=== PATIENT | male | born 1960 | race Caucasian/White ===

== ENCOUNTER 2016-10-05 08:13 | Inpatient (IN) | payer OTHER ==
[2016-09-28 10:56] VITALS: BP 124/94
[~2016-10-05] VITALS: Ht 177.8 cm; Wt 97.5 kg
[~2016-10-05 08:13] MED LIST: ATIV0.5T; EFFE75CA75 PO; KLON1TAB PO; LUNE2TAB; LUNE3TAB48 PO; PROZ40CA; [UNRECOGNIZED DRUG - OTHER] PO; vitamin d PO
[2016-10-07] MEDS ORDERED: NORCO, ANEXSIA 5/325MG TABLET (HYDROcodone/ACETAMINOPHEN) As Ordered ONE (13:37)
[2016-11-23] MEDS ORDERED: CONC36TA4 PO (11:08)
[2016-11-23] MEDS ORDERED: VITA100066 PO (11:08)
--- NOTE | 2016-11-26 17:08 | HPE ---
DATE OF ADMISSION: 12/03/2016 ATTENDING PHYSICIAN: Dr. Hamm CHIEF COMPLAINT: Left hip pain and stiffness. Júnior is a 56-year-old male with progressively worsening left hip pain and stiffness. He has failed to improve with conservative management. He has elected for surgery for his continued symptoms with weightbearing activities and activities of daily living. He has consented for a left total hip arthroplasty by Dr. Hamm. Medical optimization from Dr. Goss, Dr. Maldonado and Dr. Herrera received and reviewed today. CURRENT MEDICATIONS: - Cialis 2.5 mg - Effexor extended release 75 mg twice daily - Klonopin 1 mg up to three times daily as needed ALLERGIES: No known drug allergies. Questionable Tylenol Allergy per patient? PAST MEDICAL HISTORY: Generalized anxiety disorder. PAST SURGICAL HISTORY: Umbilical hernia repair, colonoscopy. SOCIAL HISTORY: Patient is . Never smoked. Denies alcohol use. REVIEW OF SYSTEMS: Patient denies fevers, chills, nausea, vomiting, or diarrhea. He denies chest pain, shortness of breath. He denies any recent upper respiratory or urinary tract infection symptoms. He does have persistent pain in his left hip with weightbearing activities. PHYSICAL EXAMINATION: Well-nourished, well-developed male in no apparent distress. He does walk with a limping gait favoring his left side. Skin over his left hip was intact. There is irritability at the hip elicited with range of motion. His calf is soft, nontender to palpation. Distally, he is neurovascularly intact. NECK: Supple without lymphadenopathy, jugular venous distention (JVD). HEART: Regular rate and rhythm. LUNGS: Clear to auscultation bilaterally without rales or wheezes. ABDOMEN: Bowel sounds are present. VITAL SIGNS: 5 feet 9 inches, weight 225 pounds. Temperature 99.6, blood pressure 132/74, heart rate 80, respirations 16. LABORATORY DATA: Chest x-ray shows no acute cardiopulmonary process. EKG shows normal sinus rhythm with LAD. The patient was cleared by cardiology status post normal stress test and echocardiogram. Comprehensive metabolic profile: Fasting glucose 103, BUN 11, creatinine for GFR 1.07, GFR greater than 60, sodium 138, potassium 4.0, chloride 100, carbon dioxide 32, anion gap slightly decreased at 6, calcium 9.3. AST elevated at 58, ALT 70, alkaline phosphatase 68, total bilirubin 0.6, total protein 8.1, albumin 4.0, albumin/globulin ratio slightly decreased at 0.98. Urinalysis was positive for only 1+ protein, trace ketones, and 2.0 urobilinogen and a moderate amount of mucus. Urine culture showed no growth. Complete blood count: WBC 4.8, RBC 4.92, hemoglobin 15.7, hematocrit 43.9, platelets 220. Sedimentation rate 20, prothrombin time 12.4, INR 0.91. Nasal and sinus culture with normal frances present. DIAGNOSIS: Symptomatic osteoarthritis of the left hip with x-rays notable for end stage degenerative changes. PLAN: Patient has consented for a left total knee arthroplasty by Dr. Hamm. CHAZ
[2016-12-03] VITALS (7 sets, daily range): BP systolic 124–137; BP diastolic 73–92; O2SAT 97
[2016-12-03] MEDS ORDERED: **UNRESOLVED NON-FORMULARY MED ORDER XX SCH (00:01)
[2016-12-03] MEDS ORDERED: LR 1,000 ML IV SCH ×3 (06:00→10:30)
[2016-12-03] MEDS ORDERED: ceFAZolin 1GM INJ (J0690) As Ordered ONE (07:15)
[2016-12-03] MEDS ORDERED: ACETAMINOPHEN 500 MG TAB As Ordered ONE (07:24)
[2016-12-03] MEDS ORDERED: ACETAMINOPHEN 500 MG TAB PO ONE (07:30)
[2016-12-03] MEDS ORDERED: MIDAZOLAM INJ 2 MG/2 ML VIAL (J2250) As Ordered ONE ×2 (08:06→09:09)
[2016-12-03] MEDS ORDERED: fentaNYL 100 MCG/2 ML INJECTION (J3010) As Ordered ONE (08:06)
[2016-12-03] MEDS ORDERED: PROPOFOL 500 MG/50 ML VIAL As Ordered ONE (08:06)
[2016-12-03] MEDS ORDERED: PHENYLephrine HCL 500 MCG/5 ML (100MCG/ML) SYRINGE (J2370) As Ordered ONE ×2 (08:11→08:40)
[2016-12-03] MEDS ORDERED: ceFAZolin 1GM INJ (J0690) IR ONE (08:21)
[2016-12-03] MEDS ORDERED: PROPOFOL 200 MG/20 ML VIAL As Ordered ONE ×2 (08:59→09:27)
[2016-12-03] MEDS ORDERED: MORPHINE PCA 1MG/ML 100ML CADD As Ordered ONE (10:10)
[2016-12-03] MEDS ORDERED: MORPHINE PCA 1MG/ML 100ML CADD IV PRN (10:30)
[2016-12-03] MEDS ORDERED: ONDANSETRON 4MG/2ML VIAL (J2405) IV PRN ×2 (10:30)
[2016-12-03] MEDS ORDERED: NALBUPHINE HCL 10 MG/ML AMP (J2300) IV PRN (10:30)
[2016-12-03] MEDS ORDERED: NALOXONE INJ 0.4 MG/1 ML VIAL (J2310) IV PRN (10:30)
[2016-12-03] MEDS ORDERED: EPIDURAL/PCA KEYS XX PRN (10:30)
[2016-12-03] MEDS ORDERED: FLEET ENEMA PR PRN (10:30)
[2016-12-03] MEDS ORDERED: fentaNYL 100 MCG/2 ML INJECTION (J3010) IV PRN (10:30)
[2016-12-03] MEDS ORDERED: diphenhydrAMINE INJ 50MG/ML VIAL (J1200) IV PRN (10:30)
--- NOTE | 2016-12-03 11:42 | RO ---
DATE OF PROCEDURE: 12/03/2016 PREOPERATIVE DIAGNOSIS: Left hip degenerative arthritis. POSTOPERATIVE DIAGNOSIS: Left hip degenerative arthritis. PROCEDURE: Left total hip arthroplasty using a size 6 [place] standard offset stem with a +5 neck, 36 mm ceramic head, and a 58 mm cup with a 36 mm neutral polyethylene liner. Prosthesis made by [employer]. SURGEON: Toma Hamm MD [employer]: Devan Miramontes PA-C ANESTHESIA: Spinal. ESTIMATED BLOOD LOSS: 150 mL. COMPLICATIONS: None. URINE OUTPUT: 450 mL. DESCRIPTION OF PROCEDURE: Antibiotics were given intravenously preoperatively. Successful spinal anesthetic was induced. A Briscoe catheter was placed. He was placed in a lateral decubitus position with [place] hip positioner, down leg well padded, especially the peroneal nerve. Axillary roll was utilized. The left hip area was prepped and draped in the usual sterile fashion. After appropriate time out, a longitudinal incision was then made for a direct lateral approach to the hip. Bovie cautery was used to coagulate crossing vessels down to the tensor fascia, which was divided in line with the skin incision and we split the gluteus medius, anterior one third and posterior two third junction. We then divided through the gluteus minimus and anterior hip capsule and carefully dissected the tissues anteriorly off the trochanter as we externally rotated the hip and dislocated anteriorly. The starter reamer was placed in the piriformis fossa followed by the canal finding reamer, then the lateralizing reamer and then we reamed up to a size 6 reamer. Femoral neck osteotomy performed using the guide. We then used the box osteotome to set the version, matching his normal version, and then began broaching up to a size 6 broach, which fit very nicely. We did not have to do a calcar plane or revise the cut. We then exposed the acetabulum. He had very large osteophytes, especially superiorly and anteriorly, but eventually we were able to expose the acetabulum adequately such that we could do a good labral excision and inferior capsular release to provide exposure to the acetabulum. We then began reaming, began with a 50 mm reamer, down to just about the floor of the acetabulum, and then we sequentially increased the reamer size in 1 mm increments from 53 up to 57. The trial of 58 cup fit very nicely. Extramedullary alignment guide was used to help make sure we had appropriate version and abduction. We did excise a very large superior osteophyte as well as excised with an osteotome a large anterior osteophyte. We then copiously irrigated out the acetabulum. There were some cysts in the acetabulum, which I curetted and the placed the real 58 mm cup and used the guide again to be sure we were set at the appropriate abduction and version. The central hole eliminator was placed. The real polyethylene was placed and it seated nicely, and then we exposed the proximal femur and placed the number 6 broach, and trialed with a +5 neck length and it actually fit very nicely and there was good stability to flexion, internal rotation, and extension and external rotation, but there was minimal shuck. He was a little bit short preoperatively and thus I did trial the 8.5 neck, but in my estimation it was bit to tight. His left knee would not quite touch the bed because the abductors were to tight with a +8.5. I did not want to over tighten, so I settled on the +5 neck length. Thus, i removed the broach, placed the real number 6 stem after copiously irrigating out the femoral canal and placed the 35 mm x +5 neck length ceramic head and then reduced the hip. We copiously irrigated the wounds as we did several times throughout the operation then closed the gluteus minimus and anterior capsule back anatomically and then the gluteus medius back anatomically to the trochanter and with a series of interrupted #1 PDS sutures. Irrigated between layers, closed the tensor fascia with a running STRATAFIX, irrigated between layers and closed the deep subdermal tissues with interrupted #2-0 PDS sutures. The skin was closed with latisha, covered by Adaptic dry sterile bulky dressing. He was then placed in his abduction pillow brace after turning him supine and then transferred to the recovery room in stable condition. There were no intraoperative complications. Mr. Devan Miramontes was critical to the success of this difficult operation by helping to manipulate the hip, helping with appropriate soft tissue retraction, helping to expose the acetabulum, such that I could perform the operation smoothly and efficiently, helped to close the wound, amongst many other tasks.
[2016-12-03] MEDS: SENOKOT S TAB PO SCH ×2 (12:25→20:06)
[2016-12-03] MEDS: LR 1,000 ML IV SCH ×2 (12:25→23:00)
[2016-12-03] MEDS: MIRALAX *UNIT DOSE* 17GM PACKET PO SCH (12:25)
[2016-12-03] MEDS ORDERED: clonazePAM 1 MG TAB PO PRN (14:45)
--- NOTE | 2016-12-03 16:45 | CR ---
DATE OF CONSULTATION: 12/03/2016 CONSULTATION REPORT FOR: Dr. Juan Diego Hamm REASON FOR CONSULTATION: Medical management. [facility] C[facility] COMMISSIONER: Dr. Quintin Maldonado HISTORY OF PRESENT ILLNESS: This is a 56-year-old male patient with underlying medical history of generalized anxiety disorder, depression, osteoarthritis, initially presented to orthopedics with progressively worsening left hip pain and stiffness, failed to improve on conservative management and patient has presented for elective surgery for left total hip arthroplasty by Dr. Juan Diego Hamm. Medical optimization done by Dr. Benjamin, Dr. Maldonado, and Dr. Hererra. Status post surgery medicine consulted for medical management. Patient currently reporting minimal pain. Examined in the postanesthesia care unit (PACU). Denies any chest pain, pressure, or discomfort. Denies any fevers or chills. Denies history of obstructive sleep apnea. ALLERGIES: Questionable allergy to ACETAMINOPHEN. PAST MEDICAL HISTORY: Anxiety and depression. PAST SURGICAL HISTORY: Umbilical hernia repair, colonoscopy. SOCIAL HISTORY: Patient is . Never smoked. Occasional alcohol use once or twice a week, 1-2 beers. FAMILY HISTORY: Noncontributory. HOME MEDICATIONS: - Cialis 2.5 mg - Concerta 40 mg by mouth daily - Lunesta 3 mg by mouth as needed - Klonopin 1 mg by mouth three times a day as needed REVIEW OF SYSTEMS: 11-point review of systems was negative except those mentioned in history of present illness (HPI). PHYSICAL EXAMINATION: VITAL SIGNS: Temperature 97, pulse 72, respirations 18, blood pressure 123/75, pulse oximetry 99% on 2 liters nasal cannula. GENERAL: Patient alert and oriented times three, in no acute distress. HEENT: Normocephalic, atraumatic. PULMONARY: Bilateral clear to auscultation. CARDIAC: Regular rate and rhythm, normal S1, S2. ABDOMEN: Soft, nontender, nondistended. Hypoactive bowel sounds. EXTREMITIES: Dressing clean, dry, and intact. Able to move bilateral toes. Dorsalis pedis (DP) and posterior tibialis (PT) pulses 2+ bilateral. ASSESSMENT AND PLAN: This is a 56-year-old male patient with underlying medical history of anxiety and depression, osteoarthritis of the left hip, admitted onto orthopedic service for left total hip replacement. 1. Osteoarthritis status post left total hip replacement by Dr. Juan Diego Hamm. Pain regimen, perioperative management, physical therapy, deep venous thrombosis (DVT) prophylaxis as per orthopedic team. Patient on Coumadin for anticoagulation. Followup INR. Bowel regimen ordered. 2. Anxiety and depression. Continue home medications. 3. Deep venous thrombosis (DVT) prophylaxis. Patient on Coumadin as per orthopedics. DISPOSITION: Managed as per orthopedics team.
[2016-12-03] MEDS ORDERED: WARFARIN SOD 5 MG TAB PO SCH (17:00)
[2016-12-03] MEDS ORDERED: clonazePAM 1 MG TAB PO SCH (21:00)
[2016-12-03] MEDS ORDERED: PRAZOSIN 1 MG CAP PO SCH (21:00)
[2016-12-04 06:00] VITALS: BP 123/70
[2016-12-04] MEDS ORDERED: ONDANSETRON 4 MG TAB (S0181) PO PRN (06:30)
[2016-12-04] MEDS ORDERED: traMADol 50 MG TAB PO PRN (06:30)
[2016-12-04 06:43] LABS: MEAN CORPUSCULAR HEMOGLOBIN 31.4 pg (27.0-33.0); MEAN CORPUSCULAR HGB CONC 34.7 g/dl (32.0-36.5); MEAN CORPUSCULAR VOLUME 90.6 fl (80.0-96.0)
[2016-12-04 06:45] LABS: INR 1.08
[2016-12-04 06:58] LABS: ANION GAP 7 MEQ/L (8-16); BLOOD UREA NITROGEN 10 MG/DL (7-18); CALCIUM LEVEL 8.2 MG/DL (8.5-10.1); CARBON DIOXIDE LEVEL 31 MEQ/L (21-32); CHLORIDE LEVEL 98 MEQ/L (98-107); GLOMERULAR FILTRATION RATE > 60.0 (>56); GLUCOSE, FASTING 120 MG/DL (70-105); POTASSIUM SERUM 3.7 MEQ/L (3.5-5.1); SODIUM LEVEL 136 MEQ/L (136-145)
--- NOTE | 2016-12-04 08:01 | IPNPDOC ---
Assessment/Plan Date Seen The patient was seen on 12/04/16. Problems Problems: (1) Status post total hip replacement, left Status: Acute Problem Text: elective total hip arthroplasty of the left for advanced osteoarthritis, pain control and dvt prophylaxis as per ortho protocol. (2) SEAN (generalized anxiety disorder) Status: Chronic Problem Text: continue home meds. (3) Depression Status: Chronic Problem Text: continue home meds. Plan / VTE VTE Prophylaxis Ordered?: Yes Subjective Review of Systems CC/HPI The patient is a 56-year-old male admitted with a reason for visit of Arthritis Left Hip. Events since last encounter complains of some cramps in the abdomen after breakfast, no nausea or vomiting , no chest pain or shortness of breath. Objective Physical Examination Eye Exam: Positive: Conjunctiva & lids normal, EOMI, PERRLA, Negative: Sclera icteric ENT Exam: Positive: Atraumatic, Mucous membr. moist/pink, Pharynx Normal Neck Exam: Positive: Supple, Negative: JVD, thyromegaly Chest Exam: Positive: Clear to auscultation, Normal air movement Heart Exam: Negative: Bradycardic, Gallops, Irregular Rhythm, Murmurs, Normal S1, Normal S2, Other, Rate Normal, Regular Rhythm, Rubs, Tachycardic Abdomen Exam: Positive: Normal bowel sounds, Soft, Negative: Hepatospenomegaly, Tenderness Extremity Exam: Positive: Normal pulses, Negative: Clubbing, Cyanosis, Edema Vital Signs/I&O Vital Signs Date Time Temp Pulse Resp B/P Pulse Ox O2 Delivery O2 Flow Rate FiO2 12/04/16 06:00 98.4 103 16 123/70 96 Nasal Cannula 2.0 I&O- Last 24 Hours up to 6 AM 12/04/16 06:00 Intake Total 3780 ml Output Total 1900 ml Balance 1880 ml Laboratory Data Labs 24H Laboratory Tests 2 12/04/16 06:23: Anion Gap 7L, Blood Urea Nitrogen 10, Creatinine 1.00, Sodium Level 136, Potassium Level 3.7, Chloride Level 98, Carbon Dioxide Level 31, Calcium Level 8.2L, Glomerular Filtration Rate > 60.0, Magnesium Level 2.0, Prothromb Time International Ratio 1.08, Prothrombin Time 14.1 CBC/BMP Laboratory Tests 12/04/16 06:23 Calcium Level 8.2 L, Red Blood Count 4.13 L, Mean Corpuscular Volume 90.6, Mean Corpuscular Hemoglobin 31.4, Mean Corpuscular Hemoglobin Concent 34.7, Red Cell Distribution Width 14.0 VICKIE WHITE MD Dec 04, 2016 08:01
[2016-12-04] MEDS: MIRALAX *UNIT DOSE* 17GM PACKET PO SCH (08:20)
[2016-12-04] MEDS: MOM 30ML SUSPENSION UDC PO SCH (08:20)
[2016-12-04] MEDS: SENOKOT S TAB PO SCH ×2 (08:21→19:34)
[2016-12-04] MEDS: traMADol 50 MG TAB PO PRN ×2 (08:21→15:12)
[2016-12-04 10:04] VITALS: BP 132/78
[2016-12-04] MEDS ORDERED: diphenhydrAMINE 25 MG CAP PO ONE ×2 (10:30→23:45)
[2016-12-04] MEDS ORDERED: ACETAMINOPHEN 500 MG TAB PO ONE (10:30)
--- NOTE | 2016-12-04 12:03 | REP ---
LEFT HIP: Two views. HISTORY: Postop placement. Comparison study February 12, 2012. FINDINGS: A left hip arthroplasty is seen in good position and alignment. There is superior and inferior acetabular spurring noted. Periarticular soft tissues show some swelling postoperatively. Lateral skin latisha are seen. IMPRESSION: Status post left hip arthroplasty. Signed by John Munroe MD 12/04/2016 02:00 P
[2016-12-04 12:22] VITALS: BP 137/84
[2016-12-04 14:30] VITALS: BP 135/81
[2016-12-04] MEDS: METHYLPHENIDATE ER 18 MG TABLET (CONCERTA) PO SCH (14:54)
[2016-12-04] MEDS: ACETAMINOPHEN TAB 650MG DOSE (2X325MG) PO PRN (16:32)
[2016-12-04] MEDS ORDERED: WARFARIN SOD 5 MG TAB PO ONE (17:00)
[2016-12-04 22:00] VITALS: BP 137/79
[2016-12-05] MEDS: ACETAMINOPHEN TAB 650MG DOSE (2X325MG) PO PRN (05:44)
[2016-12-05 06:00] VITALS: BP 126/81
[2016-12-05 06:14] LABS: MEAN CORPUSCULAR HGB CONC 34.4 g/dl (32.0-36.5); MEAN CORPUSCULAR VOLUME 90.2 fl (80.0-96.0); WHITE BLOOD COUNT 11.2 K/mm3 (4.0-10.0)
[2016-12-05 06:20] LABS: INR 1.3
[2016-12-05 06:27] LABS: ANION GAP 8 MEQ/L (8-16); BLOOD UREA NITROGEN 8 MG/DL (7-18); CALCIUM LEVEL 8.6 MG/DL (8.5-10.1); CARBON DIOXIDE LEVEL 32 MEQ/L (21-32); CHLORIDE LEVEL 95 MEQ/L (98-107); CREATININE FOR GFR 1.02 MG/DL (0.70-1.30); GLOMERULAR FILTRATION RATE > 60.0 (>56); GLUCOSE, FASTING 100 MG/DL (70-105); MAGNESIUM LEVEL 2.2 MG/DL (1.8-2.4); POTASSIUM SERUM 3.6 MEQ/L (3.5-5.1); SODIUM LEVEL 135 MEQ/L (136-145)
[2016-12-05] MEDS: traMADol 50 MG TAB PO PRN ×3 (06:59→19:45)
[2016-12-05] MEDS: MOM 30ML SUSPENSION UDC PO SCH (08:27)
[2016-12-05] MEDS: METHYLPHENIDATE ER 18 MG TABLET (CONCERTA) PO SCH (08:28)
[2016-12-05] MEDS: MIRALAX *UNIT DOSE* 17GM PACKET PO SCH (08:28)
[2016-12-05] MEDS: SENOKOT S TAB PO SCH ×2 (08:28→22:52)
[2016-12-05] MEDS ORDERED: TRAM50TA2 PO (08:49)
[2016-12-05] MEDS ORDERED: COUM2.5T11 PO (08:49)
--- NOTE | 2016-12-05 09:31 | IPNPDOC ---
Assessment/Plan Date Seen The patient was seen on 12/05/16. Problems Problems: (1) Fever Status: Acute Problem Text: does not seem no have any symptoms or signs suggestive of infection. most probably post operative fever . will observe for another 24 hours, if continues to spike temp after 48 hours then will do a infectious work up. (2) Status post total hip replacement, left Status: Acute Problem Text: elective total hip arthroplasty of the left for advanced osteoarthritis, pain control and dvt prophylaxis as per ortho protocol. (3) SEAN (generalized anxiety disorder) Status: Chronic Problem Text: continue home meds. (4) Depression Status: Chronic Problem Text: continue home meds. Plan / VTE VTE Prophylaxis Ordered?: Yes Subjective Review of Systems CC/HPI The patient is a 56-year-old male admitted with a reason for visit of Arthritis Left Hip. Events since last encounter has marilyn having fever for the past 24 hours. t max of 101.7, no complaints no chills, no cough or phlegm , no abdominal pain , no nausea or vomiting or diarrhea . Objective Physical Examination Eye Exam: Positive: Conjunctiva & lids normal, EOMI, PERRLA, Negative: Sclera icteric ENT Exam: Positive: Atraumatic, Mucous membr. moist/pink, Pharynx Normal Neck Exam: Positive: Supple, Negative: JVD, thyromegaly Chest Exam: Positive: Clear to auscultation, Normal air movement Heart Exam: Negative: Bradycardic, Gallops, Irregular Rhythm, Murmurs, Normal S1, Normal S2, Other, Rate Normal, Regular Rhythm, Rubs, Tachycardic Abdomen Exam: Positive: Normal bowel sounds, Soft, Negative: Hepatospenomegaly, Tenderness Extremity Exam: Positive: Normal pulses, Negative: Clubbing, Cyanosis, Edema Vital Signs/I&O Vital Signs Date Time Temp Pulse Resp B/P Pulse Ox O2 Delivery O2 Flow Rate FiO2 12/05/16 07:55 18 12/05/16 06:34 99.2 12/05/16 06:00 101 126/81 97 Room Air 12/04/16 06:00 2.0 I&O- Last 24 Hours up to 6 AM 12/05/16 06:00 Intake Total 480 ml Output Total 200 ml Balance 280 ml Laboratory Data Labs 24H Laboratory Tests 2 12/05/16 05:52: Prothromb Time International Ratio 1.30, Prothrombin Time 16.3H 12/05/16 05:53: Anion Gap 8, Blood Urea Nitrogen 8, Creatinine 1.02, Sodium Level 135L, Potassium Level 3.6, Chloride Level 95L, Carbon Dioxide Level 32, Calcium Level 8.6, Glomerular Filtration Rate > 60.0, Magnesium Level 2.2 CBC/BMP Laboratory Tests 12/05/16 05:53 Calcium Level 8.6, Red Blood Count 4.01 L, Mean Corpuscular Volume 90.2, Mean Corpuscular Hemoglobin 31.0, Mean Corpuscular Hemoglobin Concent 34.4, Red Cell Distribution Width 14.0 VICKIE WHITE MD Dec 05, 2016 09:31
[2016-12-05] MEDS: ENOXAPARIN 40 MG/0.4 ML SYRINGE (J1650) SC SCH (09:51)
[2016-12-05 14:00] VITALS: BP 136/79
[2016-12-05] MEDS ORDERED: WARFARIN SOD 7.5 MG TAB PO SCH (17:00)
[2016-12-05] MEDS ORDERED: diphenhydrAMINE 25 MG CAP PO PRN (18:45)
[2016-12-05 22:00] VITALS: BP 121/63
[2016-12-06 06:00] VITALS: BP 121/57
[2016-12-06 06:06] LABS: MEAN CORPUSCULAR HEMOGLOBIN 31.7 pg (27.0-33.0); MEAN CORPUSCULAR HGB CONC 35.3 g/dl (32.0-36.5); MEAN CORPUSCULAR VOLUME 89.8 fl (80.0-96.0); RED CELL DISTRIBUTION WIDTH 13.8 % (11.5-14.5); WHITE BLOOD COUNT 8.2 K/mm3 (4.0-10.0)
[2016-12-06 06:17] LABS: INR 1.45
[2016-12-06 06:21] LABS: ANION GAP 7 MEQ/L (8-16); BLOOD UREA NITROGEN 9 MG/DL (7-18); CALCIUM LEVEL 8.1 MG/DL (8.5-10.1); CARBON DIOXIDE LEVEL 32 MEQ/L (21-32); CHLORIDE LEVEL 96 MEQ/L (98-107); CREATININE FOR GFR 0.96 MG/DL (0.70-1.30); GLOMERULAR FILTRATION RATE > 60.0 (>56); GLUCOSE, FASTING 96 MG/DL (70-105); MAGNESIUM LEVEL 2.4 MG/DL (1.8-2.4); POTASSIUM SERUM 3.4 MEQ/L (3.5-5.1); SODIUM LEVEL 135 MEQ/L (136-145)
[2016-12-06] MEDS: traMADol 50 MG TAB PO PRN ×2 (07:29→15:20)
[2016-12-06] MEDS ORDERED: POTASSIUM CHLORIDE 10 MEQ SR TABLET PO ONE (08:15)
[2016-12-06] MEDS: MOM 30ML SUSPENSION UDC PO SCH (10:30)
[2016-12-06] MEDS: MIRALAX *UNIT DOSE* 17GM PACKET PO SCH (10:30)
[2016-12-06] MEDS: METHYLPHENIDATE ER 18 MG TABLET (CONCERTA) PO SCH (10:32)
[2016-12-06] MEDS: SENOKOT S TAB PO SCH (10:33)
[2016-12-06] MEDS: ENOXAPARIN 40 MG/0.4 ML SYRINGE (J1650) SC SCH (10:34)
--- NOTE | 2016-12-08 11:41 | DSES ---
DATE OF ADMISSION: 12/03/2016 DATE OF DISCHARGE: 12/06/2016 ADMITTING DIAGNOSIS: Symptomatic left hip osteoarthritis. DISCHARGE DIAGNOSIS: Status post left total hip arthroplasty. HISTORY OF PRESENT ILLNESS: This is a pleasant male with continuing symptomatic left hip osteoarthritis. He consented for a left total hip arthroplasty per Dr. Juan Diego Hamm. Medical optimization per Dr. Goss. X-rays were consistent with advanced osteoarthritis. OPERATION PERFORMED: Left total hip arthroplasty. HOSPITAL COURSE: The patient uneventfully underwent left total hip arthroplasty under spinal anesthesia and was returned to the recovery room. Our hospital team felt comfortable discharging the patient on with the following instructions: Diet as regular, Percocet as needed pain. Weightbearing as tolerated left lower extremity with walker. Continue with MIKAYLA stockings times 30 days. Optifoam dressing change in 4 days' time. Followup in office will be 12 to 14 days for wound check and staple removal. The patient is encouraged to contact our office sooner with increased pain, numbness, tingling, redness, drainage, bleeding and/or fever greater than 101. Any further concerns, they should contact our office sooner. The patient understands and agrees to the plan.
== END 2016-12-06 15:30 | disposition home health service (06) | DRG 470 ==
LOC: M OR 12-03 06:05 → M MS5PR 12-03 11:40
PROVIDERS: ADMIT Orthopaedic Surgery; ATTEND Orthopaedic Surgery
PROC: 0SRB0JZ Replacement of Left Hip Joint with Synthetic Substitute, Open Approach (ICD-10-PCS; principal; 2016-12-03 07:30)
DX: M16.12 Unilateral primary osteoarthritis, left hip (principal); Z79.899 Other long term (current) drug therapy; F41.1 Generalized anxiety disorder; F32.9 Major depressive disorder, single episode, unspecified

== ENCOUNTER → 2016-12-08 | Outpatient (REF) | payer OTHER ==
[~2016-12-08] MED LIST changes: +CONC36TA4 PO; +COUM2.5T11 PO; +TRAM50TA2 PO; +VITA100066 PO
[2016-12-08 15:43] LABS: INR 1.78
== END ==
LOC: M SHH 15:12
PROVIDERS: ATTEND Nurse Practitioner Family
DX: Z51.81 Encounter for therapeutic drug level monitoring (principal); Z79.01 Long term (current) use of anticoagulants

== ENCOUNTER → 2016-12-14 | Outpatient (REF) | payer OTHER ==
[2016-12-14 13:12] LABS: INR 1.84
== END ==
LOC: M SHH 12:18
PROVIDERS: ATTEND Nurse Practitioner Family
DX: Z51.81 Encounter for therapeutic drug level monitoring (principal); Z79.01 Long term (current) use of anticoagulants

== ENCOUNTER → 2016-12-17 | Outpatient (REF) | payer OTHER ==
[2016-12-17 11:38] LABS: INR 2.49
== END ==
LOC: M SHH 11:14
PROVIDERS: ATTEND Nurse Practitioner Family
DX: Z51.81 Encounter for therapeutic drug level monitoring (principal); Z79.01 Long term (current) use of anticoagulants

== ENCOUNTER → 2016-12-21 | Outpatient (REF) | payer OTHER ==
[2016-12-21 10:38] LABS: INR 2.34
== END ==
LOC: M SHH 10:04
PROVIDERS: ATTEND Nurse Practitioner Family
DX: Z51.81 Encounter for therapeutic drug level monitoring (principal); Z79.01 Long term (current) use of anticoagulants

== ENCOUNTER → 2016-12-24 | Outpatient (REF) | payer OTHER ==
[2016-12-24 12:12] LABS: INR 1.45
== END ==
LOC: M SHH 11:49
PROVIDERS: ATTEND Nurse Practitioner Family
DX: Z51.81 Encounter for therapeutic drug level monitoring (principal); Z79.01 Long term (current) use of anticoagulants

== ENCOUNTER → 2016-12-28 | Outpatient (REF) | payer OTHER ==
[2016-12-28 11:56] LABS: INR 1.13
== END ==
LOC: M SHH 11:35
PROVIDERS: ATTEND Nurse Practitioner Family
DX: Z51.81 Encounter for therapeutic drug level monitoring (principal); Z79.01 Long term (current) use of anticoagulants

== ENCOUNTER → 2016-12-31 | Outpatient (REF) | payer OTHER ==
[2016-12-31 10:48] LABS: INR 0.96
== END ==
LOC: M SHH 10:30
PROVIDERS: ATTEND Nurse Practitioner Family
DX: Z51.81 Encounter for therapeutic drug level monitoring (principal); Z79.01 Long term (current) use of anticoagulants

== ENCOUNTER 2017-07-04 06:57 | Inpatient (IN) | payer OTHER ==
[~2017-07-04] VITALS: Ht 177.8 cm; Wt 100.0 kg
[~2017-07-04 06:57] MED LIST changes: -COUM2.5T11 PO; +COUM2.5T17 PO; +LUNE3TAB36 PO; -LUNE3TAB48 PO
[2017-07-04] MEDS ORDERED: ONDANSETRON 4MG/2ML VIAL (J2405) IV ONE (07:15)
[2017-07-04] MEDS ORDERED: NS 1,000 ML IV ONE ×2 (07:15→09:15)
[2017-07-04] MEDS ORDERED: KETOROLAC 30 MG/ML VIAL (J1885) IV ONE (07:30)
[2017-07-04 07:53] LABS: BASO % 0.3 % (0.0-1.0); EOS # 0.1 K/mm3 (0.0-0.50); EOS % 1.1 % (0.0-3.0); LARGE UNSTAINED CELL # 0.1 K/mm3 (0.0-0.4); LARGE UNSTAINED CELL % 1.6 % (0.0-4.0); LYMPH % 31.8 % (24.0-44.0); MEAN CORPUSCULAR VOLUME 92.2 fl (80.0-96.0); MONO # 0.3 K/mm3 (0.0-0.8); MONO % 4.5 % (0.0-5.0); NEUTROPHILS # 3.6 K/mm3 (1.8-7.7); NEUTROPHILS % 60.7 % (36.0-66.0); PLATELET COUNT, AUTOMATED 146 k/mm3 (150-450); RED CELL DISTRIBUTION WIDTH 14.3 % (11.5-14.5)
[2017-07-04 08:03] LABS: MEAN CORPUSCULAR HGB CONC 34.7 g/dl (32.0-36.5); WHITE BLOOD COUNT 5.9 K/mm3 (4.0-10.0)
[2017-07-04 08:12] LABS: ALBUMIN 2.5 GM/DL (3.2-5.2); ALKALINE PHOSPHATASE 79 U/L (45-117); AMYLASE 196 U/L (25-115); ANION GAP 10 MEQ/L (8-16); BILIRUBIN,DIRECT 0.2 MG/DL (0.0-0.2); BILIRUBIN,TOTAL 1.7 MG/DL (0.2-1.0); BLOOD UREA NITROGEN 11 MG/DL (7-18); CARBON DIOXIDE LEVEL 25 MEQ/L (21-32); CHLORIDE LEVEL 97 MEQ/L (98-107); CREATININE FOR GFR 1.19 MG/DL (0.70-1.30); GLOMERULAR FILTRATION RATE > 60.0 (>56); GLUCOSE, FASTING 173 MG/DL (70-105); POTASSIUM SERUM 4.6 MEQ/L (3.5-5.1); SODIUM LEVEL 132 MEQ/L (136-145)
[2017-07-04 08:13] LABS: ALBUMIN/GLOBULIN RATIO 0.52 (1.00-1.93); CALCIUM LEVEL 6.4 MG/DL (8.5-10.1); TOTAL PROTEIN 7.3 GM/DL (6.4-8.2)
[2017-07-04 08:21] LABS: ALT/SGPT 220 U/L (12-78); AST/SGOT 333 U/L (15-37)
[2017-07-04] MEDS ORDERED: TEMA15CA2 PO (09:10)
--- NOTE | 2017-07-04 09:16 | REP ---
CT ABDOMEN AND PELVIS WITHOUT CONTRAST: HISTORY: Abdominal pain. The head of the pancreas is slightly enlarged. Edema is present adjacent to the head of the pancreas and proximal duodenum. These findings are consistent with pancreatitis. The gallbladder is isodense with the liver. The liver, spleen, adrenal glands and kidneys are normal in appearance. There is no mass, adenopathy or free fluid. Diverticula are present in the ascending, transverse and descending colon. The visualized lungs are clear. The prostate gland and urinary bladder are normal in appearance. Diverticula are present in the sigmoid colon. Small bilateral inguinal hernias containing fat are present. Degenerative change is present in the spine. IMPRESSION: 1. Findings consistent with pancreatitis. 2. The gallbladder is isodense with liver. The significance of this is uncertain. 3. Diverticulosis. 4. Small bilateral inguinal hernias. Signed by Júnior Barnard MD 07/04/2017 09:30 A
[2017-07-04] MEDS ORDERED: ONDANSETRON 4MG/2ML VIAL (J2405) IV PRN (10:15)
[2017-07-04] MEDS: MORPHINE 4 MG/ML 1ML SYRINGE IV PRN ×3 (10:30→17:46)
--- NOTE | 2017-07-04 10:45 | REP ---
GALLBLADDER ULTRASOUND: HISTORY: Right upper quadrant pain. COMPARISON: 08/26/2015. There are no filling defects in the gallbladder. The common bile duct measures 5.6 mm. The liver is increased in echogenicity consistent with fatty infiltration. The pancreas is not seen due to overlying bowel gas. The right kidney measures 5.3 cm in transverse by 5.6 cm in AP by 12.2 cm in cephalocaudal dimensions. There is no hydronephrosis or mass. IMPRESSION: Fatty infiltration of the liver. Signed by Júnior Barnard MD 07/04/2017 10:51 A
[2017-07-04] MEDS: NS 1,000 ML IV SCH ×4 (11:00→20:35)
[2017-07-04] MEDS ORDERED: OXAZEPAM 10 MG CAP PO PRN (11:00)
[2017-07-04] MEDS ORDERED: clonazePAM 1 MG TAB PO PRN (11:00)
[2017-07-04] MEDS ORDERED: NALOXONE INJ 0.4 MG/1 ML VIAL (J2310) IV PRN (11:15)
[2017-07-04 11:29] LABS: ADD MANUAL DIFFER YES; DIFF SLIDE NUMBER 120; MEAN CORPUSCULAR HEMOGLOBIN 35.6 pg (27.0-33.0); MEAN CORPUSCULAR VOLUME 92.3 fl (80.0-96.0); PLATELET COUNT, AUTOMATED 102 k/mm3 (150-450); RED CELL DISTRIBUTION WIDTH 14.4 % (11.5-14.5)
[2017-07-04 11:31] LABS: MEAN CORPUSCULAR HGB CONC 34.7 g/dl (32.0-36.5); WHITE BLOOD COUNT 4.7 K/mm3 (4.0-10.0)
[2017-07-04 11:32] LABS: INR 1.09
[2017-07-04 11:34] VITALS: BP 142/78
[2017-07-04 11:45] VITALS: BP 142/78
[2017-07-04 12:17] LABS: ANISOCYTOSIS 1+; BANDS 1 % (< 11)
[2017-07-04] MEDS: THIAMINE 100 MG TAB PO SCH (12:32)
[2017-07-04] MEDS: MULTIVITAMINS/MINERALS THERAP 1 TAB PO SCH (12:32)
[2017-07-04] MEDS: FOLIC ACID 1 MG TAB PO SCH (12:32)
[2017-07-04] MEDS: KETOROLAC 30 MG/ML VIAL (J1885) IV PRN ×2 (12:33→20:51)
--- NOTE | 2017-07-04 12:38 | HPE ---
DATE OF ADMISSION: 07/04/2017 PRIMARY CARE PROVIDER: Dr. Dahiana Goss CHIEF COMPLAINT: Abdominal pain, nausea, vomiting. HISTORY OF PRESENT ILLNESS: This is a 57-year-old male with a history of chronic alcohol use, generalized anxiety disorder, depression, osteoarthritis, left hip arthroplasty who presented to the emergency room with a 2 to 3 day history of acid build up, decreased appetite, nausea and vomiting at home. He tried to remain hydrated and worked yesterday, felt okay but had stabbing pains along the epigastric and right upper quadrant, radiating across the abdomen and down into the lower quadrant without much relief at home, presented to the emergency room for evaluation. No prior episodes in the past. Has not taken any medications. No fever or chills, constipation or diarrhea at home. The patient drinks regularly, has decreased drinking recently, usually has six to eight beers per day, especially with his buddies, but has been consciously cutting back on his drinking. Denies any prior history of hyperlipidemia, trauma or gallstones in the past. He otherwise denies any chest pain, pressure, tightness, shortness of breath, lightheadedness, dizziness, upper or lower extremity weakness, jaundice, hematemesis, bright red blood per rectum, dysuria, urgency, frequency, flank pain. PAST MEDICAL / SURGICAL HISTORY: 1. Anxiety . 2. Depression. 3. Osteoarthritis. 4. Generalized anxiety disorder. 5. Left hip arthroplasty. 6. Umbilical hernia repair. 7. Colonoscopy. ALLERGIES: Questionable to acetaminophen but able to take Percocet and Twain. SOCIAL HISTORY: . 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 Never smoked. Drinks six to eight beers per day when he is with his buddies with conscious decrease recently. FAMILY HISTORY: Father with coronary artery disease and myocardial infarction. Mother with coronary artery bypass graft (CABG) in her 60s, currently 84 years old. REVIEW OF SYSTEMS: As per history of present illness. PHYSICAL EXAMINATION: Temperature 97.5, pulse 78, respiratory rate 16, blood pressure 143/75, 96% on room air. GENERAL: Awake, alert, oriented times three. No jaundice, icterus. No pharyngeal erythema, tonsillar exudate. No cervical lymphadenopathy, thyromegaly , or jugular venous distention (JVD). LUNGS: Clear to auscultation. No wheezing, rales or rhonchi. HEART: S1, S2. Sinus rhythm. ABDOMEN: Soft. Tender in the epigastric region, bilateral lower quadrants, right upper quadrant. No rebound or guarding. Positive bowel sounds. Obese. Distended abdomen. EXTREMITIES: No pitting edema. LABORATORY DATA: White count 5.9, hemoglobin 14, hematocrit 43, platelet count 146. Sodium 132, potassium 4.2, chloride 97, bicarbonate 25, BUN 11, creatinine 1.19, glucose 173, calcium 6.4, total bilirubin 1.7, direct bilirubin 0.2, AST 333, ALT 220, alkaline phosphatase 79, total protein 7.0, albumin 2.5, amylase 196, lipase 6400. Ultrasound of the gallbladder, fatty liver. CT of the abdomen and pelvis showed pancreatitis, diverticulosis, small bilateral inguinal hernias. ASSESSMENT AND PLAN: This is a 57-year-old male with a history of fatty liver from chronic alcohol use, diverticulosis, small bilateral inguinal hernias, anxiety, depression, umbilical hernia repair, previous left hip arthroplasty due to severe osteoarthritis, who presented to the emergency room with 2 to 3 day history of decreased appetite, abdominal pain, nausea, and found to have acute pancreatitis. The patient will be admitted as an inpatient for two midnights for the following issues: 1. Acute alcoholic pancreatitis. Nothing by mouth status. IV fluids. Strict input and output. Daily weights. Delirium tremens precautions. Multivitamin, thiamine, and folate. Ultrasound shows no gallstones. 2. Anxiety and depression. May resume home dose of Klonopin and Lunesta. 3. Alcoholism. Delirium tremens precautions. Ativan, Serax, multivitamin, thiamine, and folate. 4. Deep vein thrombosis (DVT) prophylaxis . Subcutaneous heparin. 5. Thrombocytopenia. Monitor the patient's subcutaneous heparin with outpatient platelet count. Check peripheral blood smear. [facility]
[2017-07-04 14:00] VITALS: BP 131/60
[2017-07-04] MEDS: HEPARIN SOD (PORCINE) 5000 UNITS/ML VIAL SC SCH ×2 (14:15→20:50)
[2017-07-04] MEDS: oxyCODONE 5MG TAB PO PRN (20:53)
[2017-07-04 22:00] VITALS: BP 128/68
[2017-07-05] MEDS: MORPHINE 4 MG/ML 1ML SYRINGE IV PRN ×2 (01:44→11:42)
[2017-07-05] MEDS: HEPARIN SOD (PORCINE) 5000 UNITS/ML VIAL SC SCH (05:49)
[2017-07-05] MEDS: KETOROLAC 30 MG/ML VIAL (J1885) IV PRN ×2 (05:58→14:03)
[2017-07-05 06:00] VITALS: BP 151/81
[2017-07-05] MEDS: oxyCODONE 5MG TAB PO PRN ×2 (06:00→20:22)
[2017-07-05 06:28] LABS: ALBUMIN 2.1 GM/DL (3.2-5.2); ALBUMIN/GLOBULIN RATIO 0.62 (1.00-1.93); ALKALINE PHOSPHATASE 51 U/L (45-117); AMYLASE 176 U/L (25-115); ANION GAP 8 MEQ/L (8-16); AST/SGOT 112 U/L (15-37); BILIRUBIN,TOTAL 1.6 MG/DL (0.2-1.0); BLOOD UREA NITROGEN 5 MG/DL (7-18); CALCIUM LEVEL 6.6 MG/DL (8.5-10.1); CARBON DIOXIDE LEVEL 26 MEQ/L (21-32); CHLORIDE LEVEL 108 MEQ/L (98-107); CREATININE FOR GFR 0.99 MG/DL (0.70-1.30); GLOMERULAR FILTRATION RATE > 60.0 (>56); GLUCOSE, FASTING 106 MG/DL (70-105); MAGNESIUM LEVEL 2.2 MG/DL (1.8-2.4); POTASSIUM SERUM 3.8 MEQ/L (3.5-5.1); SODIUM LEVEL 142 MEQ/L (136-145); TOTAL PROTEIN 5.5 GM/DL (6.4-8.2); TRIGLYCERIDES LEVEL 1177 MG/DL (<150)
[2017-07-05 06:56] LABS: ALT/SGPT 103 U/L (12-78)
[2017-07-05] MEDS: THIAMINE 100 MG TAB PO SCH (09:43)
[2017-07-05] MEDS: FOLIC ACID 1 MG TAB PO SCH (09:43)
[2017-07-05] MEDS: NS 1,000 ML IV SCH ×3 (09:43→20:19)
[2017-07-05] MEDS: MULTIVITAMINS/MINERALS THERAP 1 TAB PO SCH (09:43)
--- NOTE | 2017-07-05 13:40 | IPN ---
DATE: 07/05/2017 Tolerating his full liquid diet. Currently no nausea, vomiting. Abdominal pain is improving. Occasional pain is described as sharp in the epigastric region. No radiation. Improved with IV morphine as needed. Temperature 97.8, pulse 87, respiratory rate 20, blood pressure 151/81, 95% on room air. Generally awake, alert and oriented times three, answering questions appropriately. Lungs clear to auscultation. No wheezing, rales or rhonchi. Heart S1 and S2, sinus rhythm. Abdomen is soft, somewhat distended. No rebound or guarding. Positive bowel sounds times four quadrants. Some tenderness in the epigastric region. No hepatosplenomegaly. LABORATORY DATA: CBC, CMP reviewed. GGT elevated. Lipase decreased from 6400 to 3900. Ultrasound negative for gallstones or obstructive disease. ASSESSMENT/PLAN: This is a 57-year-old man with history of fatty liver from chronic alcohol abuse, diverticulosis, small bilateral inguinal hernia, anxiety, depression, blood clot near repair of previous left hip arthroplasty due to severe osteoarthritis (OA), being worked up for an autoimmune disease with possible rheumatoid arthritis versus lupus who presented to the emergency room with 2-3 day history of decreased appetite, abdominal pain and nausea, found to have acute pancreatitis with elevated lipase level secondary to alcohol. Patient is admitted as inpatient for two midnights for the following issues: 1. Acute alcoholic pancreatitis, nothing by mouth. Has been advanced to full liquid diet. May advance to regular diet if the patient's pain is improved. Continue IV fluids, strict intake and output, daily weights. Delirium tremens precautions. Multivitamin, thiamine, and folate. Ultrasound showed no obstructive stones. 2. Anxiety and depression. Resume home dose of Klonopin. 3. Alcoholism. Delirium tremens precautions. Ativan, Serax, multivitamin, thiamine, and folate. 4. Thrombocytopenia. Most likely secondary to fatty liver from chronic alcohol use. On subcutaneous heparin, platelet count is 102. Will discontinue heparin and place Venodyne boots.
[2017-07-05 14:00] VITALS: BP 143/78
[2017-07-05 20:22] VITALS: BP 141/83
[2017-07-05 22:00] VITALS: BP 141/83
[2017-07-06] MEDS ORDERED: IBUPROFEN 400 MG TAB PO ONE (04:00)
[2017-07-06] MEDS ORDERED: SENOKOT S TAB PO PRN (04:00)
[2017-07-06] MEDS ORDERED: MIRALAX *UNIT DOSE* 17GM PACKET PO PRN (04:00)
[2017-07-06] MEDS: LORazepam 2 MG/ML VIAL (J2060) IV PRN ×2 (04:32→13:28)
[2017-07-06 06:00] VITALS: BP 121/76
[2017-07-06 07:08] LABS: ALBUMIN/GLOBULIN RATIO 0.56 (1.00-1.93); ALKALINE PHOSPHATASE 42 U/L (45-117); ALT/SGPT 68 U/L (12-78); AMYLASE 67 U/L (25-115); ANION GAP 9 MEQ/L (8-16); AST/SGOT 65 U/L (15-37); BILIRUBIN,TOTAL 2.3 MG/DL (0.2-1.0); BLOOD UREA NITROGEN 2 MG/DL (7-18); CARBON DIOXIDE LEVEL 24 MEQ/L (21-32); CHLORIDE LEVEL 109 MEQ/L (98-107); CREATININE FOR GFR 0.96 MG/DL (0.70-1.30); GLOMERULAR FILTRATION RATE > 60.0 (>56); GLUCOSE, FASTING 93 MG/DL (70-105); POTASSIUM SERUM 3.2 MEQ/L (3.5-5.1); SODIUM LEVEL 142 MEQ/L (136-145); TOTAL PROTEIN 5.6 GM/DL (6.4-8.2)
--- NOTE | 2017-07-06 07:18 | REP ---
Clinical: Productive cough . Comparison: 09/28/2016 . Findings: The mediastinum and cardiac silhouette are stable and within normal limits for portable technique. The lung aguilar are clear without acute consolidation, effusion, or pneumothorax. Skeletal structures are intact. Impression: No acute cardiopulmonary process appreciated. Signed by Mynor Howard MD 07/06/2017 07:09 A
[2017-07-06] MEDS: FOLIC ACID 1 MG TAB PO SCH (08:31)
[2017-07-06] MEDS: MULTIVITAMINS/MINERALS THERAP 1 TAB PO SCH (08:31)
[2017-07-06] MEDS: THIAMINE 100 MG TAB PO SCH (08:31)
[2017-07-06] MEDS ORDERED: POTASSIUM CHLORIDE 10 MEQ SR TABLET PO ONE (11:00)
--- NOTE | 2017-07-06 13:43 | IPN ---
DATE: 07/06/2017 57-year-old gentleman seen at bedside resting comfortably. He feels that the abdominal pain is much improved. He did have a large bowel movement last evening. Denies any nausea, vomiting this morning, however, he did have difficulty with tolerating a regular diet yesterday and he has been backed off to a full liquid diet. Feels that the abdominal pain is between a 2 and 4 currently and has had a recorded low grade temperature through the night last night. OBJECTIVE: Temperature is 99.8 with T-max of 100.0, pulse 89, respiratory rate is 19 nonlabored, blood pressure 121/76, SPO2 95% on room air. General: The patient appears to be in no acute distress. He is alert, pleasant. HEENT: Unremarkable. Lungs: Clear to auscultation bilaterally. Heart: Regular rhythm. Abdomen: Vague epigastric tenderness. Positive bowel sounds. No masses or rebound. Extremities: No edema. No calf tenderness. LABORATORY DATA: White count 4.7, hemoglobin 12.9, platelets are 102,000. Sodium is 142, potassium 3.2, which we will supplement, chloride 109, bicarb 24, anion gap 9, BUN is 2, creatinine 0.96, glucose 93, total bilirubin is 2.3, AST 65, ALT 68, alkaline phosphatase 42, albumin is 2.0, lipase 1030 down from 3959. Chest x-ray done this morning shows no acute cardiopulmonary processes. No infiltrate. ASSESSMENT/PLAN: 1. Acute alcoholic pancreatitis. He has had some gradual improvement with being able to do well on full liquid diet currently. He did not tolerate a regular diet. Will continue to monitor input and output and fluid support. 2. Alcohol dependence. Continue with thiamine, folate, multivitamin, monitor for withdrawal. 3. Anxiety, depression. Resume use of Klonopin. 4. Drop in hemoglobin and hematocrit. This is most likely hemodilutional due to the IV fluids that he has received. Will continue to monitor. He does not demonstrate any signs of bleeding. 5. Thrombocytopenia on admission likely secondary to liver involvement from his underlying alcoholism. Will continue to monitor platelets but avoid heparin or heparin like products for DVT prophylaxis. 6. Deep venous thrombosis (DVT) prophylaxis. Encouraged to ambulate. DISPOSITION: Anticipate home discharge in the next 24-48 hours once he is able tolerate regular diet with a decrease in abdominal pain. Will also place a Patient and Family Services (PFS) consult so the patient can be given outpatient resources regarding his alcoholism.
[2017-07-06 14:00] VITALS: BP 139/64
[2017-07-06] MEDS: KETOROLAC 30 MG/ML VIAL (J1885) IV PRN (16:26)
[2017-07-06] MEDS: IBUPROFEN 600 MG TAB PO SCH (17:09)
[2017-07-06 21:19] VITALS: BP 146/83
[2017-07-07] MEDS: oxyCODONE 5MG TAB PO PRN (00:51)
[2017-07-07 00:59] VITALS: BP 146/83
[2017-07-07] MEDS: IBUPROFEN 600 MG TAB PO SCH ×3 (05:51→12:00)
[2017-07-07 06:00] VITALS: BP 138/66
[2017-07-07 06:32] LABS: MEAN CORPUSCULAR HEMOGLOBIN 32.8 pg (27.0-33.0); MEAN CORPUSCULAR HGB CONC 34.7 g/dl (32.0-36.5); MEAN CORPUSCULAR VOLUME 94.5 fl (80.0-96.0); RED CELL DISTRIBUTION WIDTH 14.1 % (11.5-14.5); WHITE BLOOD COUNT 5.1 K/mm3 (4.0-10.0)
[2017-07-07 06:40] LABS: ALBUMIN 2.1 GM/DL (3.2-5.2); ALBUMIN/GLOBULIN RATIO 0.55 (1.00-1.93); ALKALINE PHOSPHATASE 46 U/L (45-117); ALT/SGPT 60 U/L (12-78); AMYLASE 55 U/L (25-115); AST/SGOT 52 U/L (15-37); BLOOD UREA NITROGEN 4 MG/DL (7-18); CALCIUM LEVEL 7.5 MG/DL (8.5-10.1); CREATININE FOR GFR 0.97 MG/DL (0.70-1.30); GLOMERULAR FILTRATION RATE > 60.0 (>56); GLUCOSE, FASTING 108 MG/DL (70-105); TOTAL PROTEIN 5.9 GM/DL (6.4-8.2)
[2017-07-07 06:54] LABS: ANION GAP 6 MEQ/L (8-16); CARBON DIOXIDE LEVEL 29 MEQ/L (21-32); CHLORIDE LEVEL 105 MEQ/L (98-107); POTASSIUM SERUM 3.6 MEQ/L (3.5-5.1); SODIUM LEVEL 140 MEQ/L (136-145)
[2017-07-07] MEDS: THIAMINE 100 MG TAB PO SCH (07:39)
[2017-07-07] MEDS: MULTIVITAMINS/MINERALS THERAP 1 TAB PO SCH (07:40)
[2017-07-07] MEDS: FOLIC ACID 1 MG TAB PO SCH (07:40)
[2017-07-07 09:00] VITALS: BP 140/82
[2017-07-07] MEDS ORDERED: FOLI1TAB4 PO (10:09)
[2017-07-07] MEDS ORDERED: VITMTA PO (10:09)
[2017-07-07] MEDS ORDERED: OXYCO5TA PO (10:09)
[2017-07-07] MEDS ORDERED: THIA100TA PO (10:09)
--- NOTE | 2017-07-07 10:34 | DSES ---
DATE OF ADMISSION: 07/04/2017 DATE OF DISCHARGE: 07/07/2017 PRIMARY CARE PROVIDER: Dr. Dahiana Goss. CONSULTATIONS: None. PROCEDURES: None. COMPLICATIONS: None. ADMISSION/DISCHARGE DIAGNOSES: 1. Acute pancreatitis. 2. Alcohol abuse, likely contributing to acute pancreatitis. 3. Anxiety and depression, currently he is stable on Klonopin. 4. Drop in hemoglobin, no acute bleeding issues. 5. Thrombocytopenia, likely related to his liver and alcohol use, which we encouraged alcohol cessation. BRIEF HOSPITAL COURSE: Mr. Maki is a 57-year-old gentleman admitted for abdominal pain and acute pancreatitis related to alcohol consumption. He has progressed nicely, is tolerating meals, and was able to be advanced to a regular diet this morning for breakfast. I would like to see how he does through lunch and if he does well with decreased abdominal pain then he should be good for home discharge. Concerning his drop in his hemoglobin/hematocrit as well as his platelets which have trended downward, I did take the liberty to add on iron studies, B12, folic acid, reticulocyte count, and peripheral smear. Will see if those results are back prior to his discharge. Otherwise, he can followup with his primary care provider for those results. For further information regarding labs and diagnostics, please refer to the H P. PHYSICAL EXAMINATION: Today, temperature is 98.6, pulse 94, respiratory rate 18 , blood pressure (BP) 138/66, SPO2 is 92% on room air. General: The patient appears to be in no acute distress. He is alert, pleasant. HEENT: Unremarkable. Lungs: Clear. Heart: Regular rate and rhythm. Abdomen: Soft. Extremities: No edema. No calf tenderness. LABORATORY DATA: White count is 5.1, hemoglobin 11.8, platelets 75,000. Sodium 140, potassium 3.6, chloride 105, bicarb 29, anion gap 6, BUN is 4, creatinine 0.97, glucose is 108, AST 52, ALT 60, alkaline phosphatase 46, albumin is 2.1, lipase 734, INR 1.09. OTHER DIAGNOSTIC TESTS: He had a chest x-ray done yesterday, no acute cardiopulmonary disease noted. Gallbladder ultrasound with fatty infiltration of the liver, otherwise unremarkable. CT of the abdomen and pelvis: Findings were consistent with pancreatitis, no suggestion of pseudocyst. The gallbladder was isodense with the liver. Diverticulosis was noted and small bilateral inguinal hernias were noted. DISCHARGE CONDITION: Good. DISPOSITION: Discharge to home with appropriate followup. MEDICATIONS ON DISCHARGE: - folic acid 1 mg daily - multivitamin 1 tablet daily - oxycodone 5 mg one by mouth every 6 hours, #14, no refills, maximum daily dose 4 - thiamine 100mg daily - vitamin D 1000 units daily - Klonopin 1 mg three times a day as needed anxiety and agitation - Lunesta 3 mg at bedtime as needed sleep - Concerta 36 mg daily - temazepam 15 mg at bedtime as needed sleep DISCHARGE INSTRUCTIONS: Discharge to home. Activity as tolerated. Regular diet. Follow up with Dr. Goss in a week. Will need to address followup to his iron studies, B12 and folic acid levels, as well as, peripheral smear, addressing any abnormalities. May want to have repeat CMP to monitor his LFTs which have normalized and his lipase which is trending downward. He is instructed to avoid alcohol. He voices understanding. He is to seek medical attention should symptoms worsen or progress. He voices understanding. The discharge took approximately 35 minutes. CHAZ
[2017-07-07 11:10] LABS: REASON FOR REVIEW PLATELET MORPHOLOGY; RETICULOCYTE % 1.73 % (0.5-1.5)
[2017-07-07 11:11] LABS: RETIC HEMOGLOBIN CONTENT CHr 32.9 PG (24-36); RETICULOCYTE ABSOLUTE ADVIA212 60 x10(9)/L (17-77)
[2017-07-07 11:39] LABS: FERRITIN 854 NG/ML (26-388); PERCENT SATURATION 20.2 % (19.7-50.0); TOTAL IRON BINDING CAPACITY 129 UG/DL (250-450)
[2017-07-07 11:51] LABS: VITAMIN B12 LEVEL 1312 PG/ML (247-911)
[2017-07-07 11:52] LABS: FOLATE > 24.0 NG/ML (>5.4)
[2017-07-07 14:00] VITALS: BP 124/58
== END 2017-07-07 15:04 | disposition home or self-care (01) | DRG 440 ==
LOC: M ED 06:57 → M ED INP 10:01 → M MSPAV 11:34
PROVIDERS: ADMIT General Practice; ATTEND Hospitalist
DX: K85.90 Acute pancreatitis without necrosis or infection, unspecified (principal); F41.1 Generalized anxiety disorder; F32.9 Major depressive disorder, single episode, unspecified; D69.6 Thrombocytopenia, unspecified; Z79.899 Other long term (current) drug therapy; M19.90 Unspecified osteoarthritis, unspecified site; Z96.642 Presence of left artificial hip joint; Z88.8 Allergy status to other drugs, medicaments and biological substances; K57.30 Diverticulosis of large intestine without perforation or abscess without bleeding; F10.20 Alcohol dependence, uncomplicated

== ENCOUNTER → 2017-07-15 | Outpatient (CLI) | payer OTHER ==
[~2017-07-15] MED LIST changes: +FOLI1TAB4 PO; +OXYCO5TA PO; +TEMA15CA2 PO; +THIA100TA PO; +VITMTA PO
[2017-07-15 12:49] LABS: BASO % 0.1 % (0.0-1.0); EOS # 0.1 K/mm3 (0.0-0.50); LARGE UNSTAINED CELL # 0.1 K/mm3 (0.0-0.4); LARGE UNSTAINED CELL % 2.2 % (0.0-4.0); LYMPH # 2.6 K/mm3 (1.5-4.5); MEAN CORPUSCULAR HEMOGLOBIN 30.9 pg (27.0-33.0); MEAN CORPUSCULAR HGB CONC 32.8 g/dl (32.0-36.5); MEAN CORPUSCULAR VOLUME 94.2 fl (80.0-96.0); MONO # 0.3 K/mm3 (0.0-0.8); NEUTROPHILS # 2.7 K/mm3 (1.8-7.7); NEUTROPHILS % 46.7 % (36.0-66.0); PLATELET COUNT, AUTOMATED 493 k/mm3 (150-450); RED CELL DISTRIBUTION WIDTH 13.4 % (11.5-14.5); WHITE BLOOD COUNT 5.7 K/mm3 (4.0-10.0)
[2017-07-15 14:39] LABS: ALBUMIN 3.3 GM/DL (3.2-5.2); ALBUMIN/GLOBULIN RATIO 0.75 (1.00-1.93); ALKALINE PHOSPHATASE 45 U/L (45-117); ALT/SGPT 33 U/L (12-78); ANION GAP 10 MEQ/L (8-16); AST/SGOT 31 U/L (15-37); BILIRUBIN,TOTAL 0.5 MG/DL (0.2-1.0); BLOOD UREA NITROGEN 8 MG/DL (7-18); CALCIUM LEVEL 9.1 MG/DL (8.5-10.1); CARBON DIOXIDE LEVEL 26 MEQ/L (21-32); CHLORIDE LEVEL 106 MEQ/L (98-107); CHOLESTEROL LEVEL 228 MG/DL (<200); CREATININE FOR GFR 0.94 MG/DL (0.70-1.30); GLOMERULAR FILTRATION RATE > 60.0 (>56); GLUCOSE, FASTING 96 MG/DL (70-105); POTASSIUM SERUM 4.3 MEQ/L (3.5-5.1); SODIUM LEVEL 142 MEQ/L (136-145); TOTAL PROTEIN 7.7 GM/DL (6.4-8.2); TRIGLYCERIDES LEVEL 174 MG/DL (<150)
== END ==
LOC: M SMT 08:15
PROVIDERS: ATTEND Family Medicine
DX: Z12.5 Encounter for screening for malignant neoplasm of prostate (principal); Z13.29 Encounter for screening for other suspected endocrine disorder; Z13.220 Encounter for screening for lipoid disorders; Z13.0 Encounter for screening for diseases of the blood and blood-forming organs and certain disorders involving the immune mechanism; Z00.00 Encounter for general adult medical examination without abnormal findings

== ENCOUNTER → 2018-06-10 | Outpatient (CLI) | payer OTHER ==
[2018-06-10 13:29] LABS: BASO % 0.3 % (0.0-1.0); EOS # 0.1 10^3/uL (0.0-0.50); EOS % 1.6 % (0.0-3.0); HEMATOCRIT 47.7 % (42.0-52.0); HEMOGLOBIN 16.4 g/dl (13.5-17.5); IMMATURE GRANULOCYTE % 0.3 % (0-3.0); LYMPH % 51.6 % (24.0-44.0); MEAN CORPUSCULAR HEMOGLOBIN 31.5 pg (27.0-33.0); MEAN CORPUSCULAR HGB CONC 34.4 g/dl (32.0-36.5); MEAN CORPUSCULAR VOLUME 91.7 fl (80.0-96.0); MONO # 0.4 10^3/uL (0.0-0.8); MONO % 11.3 % (0.0-5.0); NEUTROPHILS # 1.3 10^3/uL (1.8-7.7); NEUTROPHILS % 34.9 % (36.0-66.0); PLATELET COUNT, AUTOMATED 150 10^3/uL (150-450); RED CELL DISTRIBUTION WIDTH 13.5 % (11.5-14.5); WHITE BLOOD COUNT 3.8 10^3/uL (4.0-10.0)
[2018-06-10 13:51] LABS: FOLATE 13.8 NG/ML; VITAMIN B12 LEVEL 683 PG/ML
[2018-06-10 13:55] LABS: CHOLESTEROL LEVEL 260 MG/DL (<200); CHOLESTEROL RISK RATIO 11.304 (<5); FERRITIN 672 NG/ML (26-388); HDL CHOLESTEROL 23 MG/DL (>40); NON-HDL-C 237 MG/DL; TRIGLYCERIDES LEVEL 1617 MG/DL (<150)
== END ==
LOC: M SMT 09:41
DX: D64.9 Anemia, unspecified (principal); E78.2 Mixed hyperlipidemia
CPT/HCPCS: 82746

== ENCOUNTER → 2019-07-19 | Outpatient (CLI) | payer OTHER ==
[~2019-07-19] MED LIST changes: +EFFE75CA2 PO; -EFFE75CA75 PO; +FOLI1TAB11 PO; -FOLI1TAB4 PO
[2019-07-19 13:24] LABS: EOS # 0.1 10^3/uL (0.0-0.5); HEMATOCRIT 44.5 % (42.0-52.0); HEMOGLOBIN 15.2 g/dl (13.5-17.5); LYMPH # 1.7 10^3/uL (1.5-5.0); LYMPH % 41.9 % (24.0-44.0); MEAN CORPUSCULAR HEMOGLOBIN 32.3 pg (27.0-33.0); MEAN CORPUSCULAR HGB CONC 34.2 g/dl (32.0-36.5); MEAN CORPUSCULAR VOLUME 94.7 fl (80.0-96.0); MONO # 0.7 10^3/uL (0.0-0.8); MONO % 16.4 % (0.0-5.0); NEUTROPHILS # 1.6 10^3/uL (1.5-8.5); NEUTROPHILS % 39.4 % (36.0-66.0); PLATELET COUNT, AUTOMATED 146 10^3/uL (150-450)
[2019-07-19 13:26] LABS: ALBUMIN 3.9 GM/DL (3.2-5.2); ALT/SGPT 122 U/L (12-78); BILIRUBIN,TOTAL 0.5 MG/DL (0.2-1.0); BLOOD UREA NITROGEN 13 MG/DL (7-18); CALCIUM LEVEL 9.1 MG/DL (8.5-10.1); CARBON DIOXIDE LEVEL 30 MEQ/L (21-32); CHLORIDE LEVEL 102 MEQ/L (98-107); CHOLESTEROL LEVEL 203 MG/DL (<200); CHOLESTEROL RISK RATIO 2.671 (<5); CREATININE FOR GFR 0.99 MG/DL (0.70-1.30); GLOMERULAR FILTRATION RATE > 60.0 (>56); GLUCOSE, FASTING 122 MG/DL (70-100); HDL CHOLESTEROL 76 MG/DL (>40); LDL CHOLESTEROL 102 MG/DL (<100); NON-HDL-C 127 MG/DL; POTASSIUM SERUM 3.6 MEQ/L (3.5-5.1); SODIUM LEVEL 140 MEQ/L (136-145); TOTAL PROTEIN 7.9 GM/DL (6.4-8.2); TRIGLYCERIDES LEVEL 125 MG/DL (<150)
[2019-07-19 16:04] LABS: HEMOGLOBIN A1c 5.5 %
== END ==
LOC: M SMT 09:06
PROVIDERS: ATTEND Family Medicine
DX: E78.2 Mixed hyperlipidemia (principal); R73.01 Impaired fasting glucose

== ENCOUNTER → 2019-09-04 | Outpatient (CLI) | payer OTHER ==
[2019-09-06 14:07] LABS: PSA TOTAL 0.4 ng/mL (0.0-4.0)
== END ==
LOC: M SMT 14:57
PROVIDERS: ATTEND Physician Assistant
DX: Z80.42 Family history of malignant neoplasm of prostate (principal)

== ENCOUNTER 2019-11-03 10:16 | Emergency (ER) | payer OTHER ==
[~2019-11-03] VITALS: Ht 177.8 cm; Wt 97.7 kg
--- NOTE | 2019-11-03 11:12 | REP ---
Clinical: Trauma . Findings: Atrophy appreciated. The ventricles and sulci are symmetric. Whitmore-white differentiation is maintained. There is no evidence for acute intracranial hemorrhage, mass/mass effect, pathology or infarction. No extra-axial fluid collection. Calvarium is intact. Paranasal sinuses and mastoid air cells are clear. Impression: Atrophy. No acute intracranial pathology or trauma/injury appreciated. Electronically Signed by Mynor Howard MD 11/03/2019 11:03 A
--- NOTE | 2019-11-03 11:13 | REP ---
Clinical: Trauma. Technique: Axial noncontrast images from the skull base to the thoracic inlet with coronal and sagittal re-formations. Findings: Generalized age-related degenerative changes are appreciated. Alignment and lordosis maintained. No acute fracture / compression injury or subluxation. Posterior elements and spinous processes are intact. Spinal canal is patent. Paravertebral soft tissues are within normal limits. Impression: Generalized age-related changes. No acute cervical trauma/injury. Electronically Signed by Mynor Howard MD 11/03/2019 11:05 A
[2019-11-03 11:20] LABS: EOS % 0.6 % (0.0-3.0); HEMATOCRIT 47.3 % (42.0-52.0); HEMOGLOBIN 16.1 g/dl (13.5-17.5); LYMPH # 1.1 10^3/uL (1.5-5.0); LYMPH % 23.1 % (24.0-44.0); MEAN CORPUSCULAR HEMOGLOBIN 32.6 pg (27.0-33.0); MEAN CORPUSCULAR VOLUME 95.7 fl (80.0-96.0); MONO # 0.4 10^3/uL (0.0-0.8); MONO % 7.9 % (0.0-5.0); NEUTROPHILS # 3.3 10^3/uL (1.5-8.5); NEUTROPHILS % 68.2 % (36.0-66.0); PLATELET COUNT, AUTOMATED 173 10^3/uL (150-450); RED BLOOD COUNT 4.94 10^6/uL (4.30-6.10); WHITE BLOOD COUNT 4.8 10^3/uL (4.0-10.0)
[2019-11-03] MEDS ORDERED: LISI10TA4 (11:20)
[2019-11-03] MEDS ORDERED: CHLO125TA (11:20)
[2019-11-03] MEDS ORDERED: TADA2.5T (11:20)
[2019-11-03] MEDS ORDERED: ZALE10CA (11:20)
--- NOTE | 2019-11-03 11:21 | REP ---
Clinical: Trauma. Technique: Axial noncontrast images through the maxillofacial bones to include the mandible with coronal and sagittal re-formations. Findings: Post traumatic paranasal soft tissue swelling and mild infraorbital soft tissue swelling noted. Very subtle nondisplaced nasal bone fracture cannot be excluded although findings may represent chronic change as there is no significant fluid within the nasal passages and the sinuses are well aerated and clear. Remainder of the osseous structures are intact and normal. Bilateral orbits are symmetric and without evidence for acute pathology or trauma/injury. Mandible and temporomandibular joints are intact. Mastoid air cells are clear. Impression: 1. Paranasal post traumatic soft tissue swelling. Presumed nonacute nondisplaced nasal bone injury. No associated acute fluid noted within the nasal passages or sinuses. 2. Remainder examination is normal. Electronically Signed by Mynor Howard MD 11/03/2019 11:13 A
[2019-11-03 11:30] LABS: INR 1.09; PROTHROMBIN TIME 13.8 SECONDS (11.8-14.0)
[2019-11-03] MEDS ORDERED: NS 1,000 ML IV ONE ×2 (11:30→14:00)
[2019-11-03 11:31] LABS: PARTIAL THROMBOPLASTIN TIME 28.7 SECONDS (25.0-38.4)
[2019-11-03] MEDS ORDERED: ADACEL/BOOSTRIX VACCINE (DIPHTH/PERTUSS/ACELL/TETANUS)0.5ML SYR (90715) IM ONE (11:45)
[2019-11-03 11:48] LABS: ALBUMIN 3.6 GM/DL (3.2-5.2); ALT/SGPT 188 U/L (12-78); AMYLASE 67 U/L (25-115); BILIRUBIN,DIRECT 0.2 MG/DL (0.0-0.2); BILIRUBIN,TOTAL 0.3 MG/DL (0.2-1.0); BLOOD UREA NITROGEN 12 MG/DL (7-18); CALCIUM LEVEL 8.7 MG/DL (8.5-10.1); CARBON DIOXIDE LEVEL 28 MEQ/L (21-32); CHLORIDE LEVEL 100 MEQ/L (98-107); CK-MB VALUE MASS 3.7 NG/ML (<3.6); CPK CREATINE PHOSPHOKINASE 413 U/L (39-308); CREATININE FOR GFR 1.01 MG/DL (0.70-1.30); ETHYL ALCOHOL (ETHANOL) 0.251 % (0.000-0.010); GLOMERULAR FILTRATION RATE > 60.0 (>56); GLUCOSE, FASTING 113 MG/DL (70-100); LIPASE 112 U/L (73-393); POTASSIUM SERUM 3.8 MEQ/L (3.5-5.1); SODIUM LEVEL 140 MEQ/L (136-145); TOTAL PROTEIN 7.8 GM/DL (6.4-8.2); TROPONIN I < 0.02 NG/ML (< 0.10)
--- NOTE | 2019-11-03 11:58 | REP ---
Clinical: Trauma . Comparison: 07/06/2017 . Findings: The mediastinum and cardiac silhouette are stable and within normal limits for portable technique. The lung aguilar are clear without acute consolidation, effusion, or pneumothorax. Skeletal structures are intact. Impression: No acute cardiopulmonary process appreciated. Electronically Signed by Mynor Howard MD 11/03/2019 11:50 A
[2019-11-03] MEDS ORDERED: ISOVUE-370 76% 100ML VIAL (Q9967) As Ordered ONE (12:10)
[2019-11-03] MEDS ORDERED: LIDOCAINE W/EPINEPHRINE 1% 20ML VIAL SC ONE (12:15)
--- NOTE | 2019-11-03 12:43 | REP ---
Clinical: Trauma. Technique: Axial contrast enhanced images from the thoracic inlet to the upper abdomen with coronal and sagittal re-formations using 100 ml Isovue 370 intravenous contrast. Findings: The bilateral lung aguilar are clear and without atelectasis, consolidation/contusion, pleural effusion, or pneumothorax. Tracheobronchial tree is patent. Mediastinum is not relatively normal. Thoracic aorta without aneurysm or dissection. No evidence for mediastinal injury. Atherosclerotic changes to the thoracic aorta and coronary arteries identified. No pericardial effusion. No adenopathy. Osseous structures suggest subtle old healed left posterior rib fractures without evidence for acute injury. Impression: No acute mediastinal or pleuroparenchymal process. No evidence for acute thoracic trauma/injury. Electronically Signed by Mynor Howard MD 11/03/2019 12:34 P
--- NOTE | 2019-11-03 12:46 | REP ---
Clinical: Trauma. Technique: Axial contrast enhanced images from the lung bases to the pubic symphysis with coronal and sagittal re-formations using 100 ml Isovue 370 intravenous contrast material. Comparison: 07/04/2017. Findings: There is no evidence for solid organ injury. Diffuse fatty infiltration to the liver noted. Spleen, pancreas, gallbladder, bilateral adrenal glands and kidneys are normal. The enteric system is without obstruction or acute inflammatory process. Normal terminal ileum, cecum and appendix identified in the right lower quadrant. Colonic and sigmoid diverticulosis noted without acute diverticulitis. Pelvis demonstrates normal bladder and age appropriate prostate/seminal vesicles. Fat containing inguinal hernias are identified. No free air. No ascites. No adenopathy. Abdominal aorta without aneurysm or dissection. Musculoskeletal structures demonstrate degenerative changes without evidence for acute injury. Impression: Hepatic steatosis. No evidence for acute abdominopelvic pathology or trauma/injury. Diverticulosis without acute diverticulitis. Fat containing inguinal hernias. Electronically Signed by Mynor Howard MD 11/03/2019 12:37 P
[2019-11-03] MEDS ORDERED: KETOROLAC 30 MG/ML VIAL (J1885) IV ONE (14:15)
[2019-11-03 14:44] LABS: AMPHETAMINES LEVEL URINE NEGATIVE (NEGATIVE); BARBITURATES URINE NEGATIVE (NEGATIVE); BENZODIAZEPINES URINE NEGATIVE (NEGATIVE); CANNABINOIDS URINE NEGATIVE (NEGATIVE); COCAINE METABOLITE URINE NEGATIVE (NEGATIVE); METHADONE URINE NEGATIVE (NEGATIVE); OPIATES URINE NEGATIVE (NEGATIVE); PHENCYCLIDINE URINE NEGATIVE (NEGATIVE)
[2019-11-03] MEDS ORDERED: NS 1,000 ML IV SCH (17:45)
--- NOTE | 2019-11-03 17:57 | REP ---
CT BRAIN WITHOUT CONTRAST: CT brain was performed without IV contrast and compared to prior exam the same day. Asymmetric densities seen along the left tentorium. Small amount of ill-defined density extends into the left posterior parietal lobe. Findings are most consistent with a small amount of hemorrhage in this region. No other acute hemorrhage is seen intracranially. Ventricles and sulci are relatively normal in size. No midline shift, mass effect or edema is seen. No skull fracture is seen. IMPRESSION: Small amount of hemorrhage along the left tentorium. No midline shift, mass effect or edema. Dr. Thibodeaux was aware of these findings at the time of the exam at approximately 4:45 p.m. 11/03/2019. Electronically Signed by August Whitmore MD 11/13/2019 07:34 P
[2019-11-03] MEDS ORDERED: LORazepam 2 MG/ML VIAL (J2060) IV STA (18:25)
[2019-11-03] MEDS ORDERED: AMPICILLIN SOD/SULBACTAM SOD 3 GM in D5W MINI-BAG PLUS 100 ML IV ONE (18:30)
[2019-11-03 19:15] VITALS: BP 167/96
--- NOTE | 2019-11-05 15:00 | ECGEPIP ---
[facility] - ED Test Date: 2019-11-03 Pat Name: STEVE WEINSTEIN Department: Room: - Gender: Male Night Time Nanny: JUAN ANTONIO : 1960 Requested By: ELY Donaldson Order Number: [id number] Reading MD: Alessandro Escamilla Measurements Intervals [place] Rate: 89 P: 48 NM: 181 QRS: -21 QRSD: 114 T: 16 QT: 376 QTc: 459 Interpretive Statements SINUS RHYTHM INFERIOR MYOCARDIAL INFARCTION, PROBABLY OLD INCOMPLETE RIGHT BUNDLE BRANCH BLOCK NONSPECIFIC T WAVE ABNORMALITIES SIMILAR TO 09/28/16 Electronically Signed on 11-05-2019 14:59:39 EST by Alessandro Escamilla
== END 2019-11-03 19:19 | disposition short-term general hospital (02) ==
LOC: M ED 10:16
DX: S06.369A Traumatic hemorrhage of cerebrum, unspecified, with loss of consciousness of unspecified duration, initial encounter (principal); S01.511A Laceration without foreign body of lip, initial encounter; V48.0XXA Car driver injured in noncollision transport accident in nontraffic accident, initial encounter; Y92.89 Other specified places as the place of occurrence of the external cause; Y93.9 Activity, unspecified; Y99.9 Unspecified external cause status; I45.19 Other right bundle-branch block; F41.9 Anxiety disorder, unspecified; F32.9 Major depressive disorder, single episode, unspecified; K76.0 Fatty (change of) liver, not elsewhere classified; K57.30 Diverticulosis of large intestine without perforation or abscess without bleeding; K40.90 Unilateral inguinal hernia, without obstruction or gangrene, not specified as recurrent; Z79.899 Other long term (current) drug therapy
CPT/HCPCS: 70450; 70486; 71045; 71260; 72125; 74177; 80047; 80048; 80076; 80307; 81001; 82150; 82550; 82553; 83605; 83690; 84484; 85025; 85610; 85730; 86850; 86900; 86901; 90471; 90715; 93005; 93041; 94760; 96360; 96361; 96375; 99285; G0480; J1885; J2060; Q9967

== ENCOUNTER → 2020-02-07 | Outpatient (CLI) | payer OTHER ==
[~2020-02-07] MED LIST changes: +CHLO125TA; +LISI10TA4; +TADA2.5T; +ZALE10CA
== END ==
LOC: M LABSMTC 11:31
PROVIDERS: ATTEND Family Medicine
DX: Z11.59 Encounter for screening for other viral diseases (principal); Z20.828 Contact with and (suspected) exposure to other viral communicable diseases

== ENCOUNTER → 2020-03-05 | Outpatient (CLI) | payer OTHER | LOC: M OUTALCOH 08:21 | PROVIDERS: ATTEND Psychiatry & Neurology Addiction Medicine | DX: Z13.39 Encounter for screening examination for other mental health and behavioral disorders (principal); F10.20 Alcohol dependence, uncomplicated ==

== ENCOUNTER 2020-03-28 19:23 | Emergency (ER) | payer OTHER ==
[2020-03-28 19:26] VITALS: BP 156/89
== END 2020-03-28 20:00 | disposition home or self-care (01) ==
LOC: M ED 19:23
DX: F10.120 Alcohol abuse with intoxication, uncomplicated (principal); I10 Essential (primary) hypertension; Z96.642 Presence of left artificial hip joint; Z79.899 Other long term (current) drug therapy

== ENCOUNTER 2020-04-03 14:17 | Outpatient (RCR) | payer OTHER | END 2020-04-07 | LOC: M OUTALCOH 14:17 | PROVIDERS: ATTEND Psychiatry & Neurology Addiction Medicine | DX: F10.20 Alcohol dependence, uncomplicated (principal) ==

== ENCOUNTER → 2020-12-12 | Outpatient (CLI) | payer OTHER ==
[~2020-12-12] MED LIST changes: +LISI-898 PO; +LISI10TA22; -LISI10TA4
== END ==
LOC: M LABSMTC 10:27
PROVIDERS: ATTEND Anesthesiology
DX: Z01.812 Encounter for preprocedural laboratory examination (principal); Z20.822 Contact with and (suspected) exposure to COVID-19

== ENCOUNTER 2020-12-17 08:01 | Day surgery (SDC) | payer OTHER ==
[~2020-12-17] VITALS: Ht 175.3 cm; Wt 91.2 kg
[~2020-12-17 08:01] MED LIST changes: +LIDOCAINE 2% 100MG/5ML SDV (FOR ANES.) As Ordered ONE; +NS 1,000 ML IV ONE; +propofoL 200 MG/20 ML VIAL As Ordered ONE
[2020-12-17] MEDS ORDERED: MIDAZOLAM INJ 2MG/2ML VIAL (J2250 PER 1MG) As Ordered ONE (08:40)
--- NOTE | 2020-12-17 09:08 | ROOR ---
Patient Name: Júnior Maki Procedure Date: 12/17/2020 8:29 AM Date of : 1960 Age: 60 Room: [facility] Gender: Male Note Status: Finalized Procedure: Colonoscopy Indications: Screening for colorectal malignant neoplasm, Last colonoscopy: November 2010 Providers: Win Jones MD Referring MD: Dahiana VO DO Requesting Provider: Medicines: Monitored Anesthesia Care Complications: No immediate complications. Procedure: Pre-Anesthesia Assessment: - Prior to the procedure, a History and Physical was performed, and patient medications and allergies were reviewed. The patient is competent. The risks and benefits of the procedure and the sedation options and risks were discussed with the patient. All questions were answered and informed consent was obtained. Patient identification and proposed procedure were verified by the physician, the nurse and the anesthesiologist in the endoscopy suite. Mental Status Examination: alert and oriented. Airway Examination: normal oropharyngeal airway and neck mobility. Prophylactic Antibiotics: The patient does not require prophylactic antibiotics. Prior Anticoagulants: The patient has taken no previous anticoagulant or antiplatelet agents. ASA Grade Assessment: II - A patient with mild systemic disease. After reviewing the risks and benefits, the patient was deemed in satisfactory condition to undergo the procedure. The anesthesia plan was to use monitored anesthesia care (MAC). Immediately prior to administration of medications, the patient was re-assessed for adequacy to receive sedatives. The heart rate, respiratory rate, oxygen saturations, blood pressure, adequacy of pulmonary ventilation, and response to care were monitored throughout the procedure. The physical status of the patient was re-assessed after the procedure. The Colonoscope was introduced through the anus and advanced to the terminal ileum. The colonoscopy was performed without difficulty. The patient tolerated the procedure well. The quality of the bowel preparation was excellent. Findings: The perianal and digital rectal examinations were normal. The terminal ileum appeared normal. Multiple medium-mouthed diverticula were found in the proximal descending colon, splenic flexure, transverse colon, hepatic flexure and ascending colon. Impression: - The examined portion of the ileum was normal. - Diverticulosis in the proximal descending colon, at the splenic flexure, in the transverse colon, at the hepatic flexure and in the ascending colon. - No specimens collected. Recommendation: - Discharge patient to home. - Resume previous diet. - Continue present medications. - Repeat colonoscopy in 10 years for screening purposes. Procedure Code(s): --- Professional --- 41577, Colonoscopy, flexible; diagnostic, including collection of specimen(s) by brushing or washing, when performed (separate procedure) Diagnosis Code(s): --- Professional --- Z12.11, Encounter for screening for malignant neoplasm of colon K57.30, Diverticulosis of large intestine without perforation or abscess without bleeding CPT copyright 2019 [employer]. All rights reserved. The codes documented in this report are preliminary and upon fur clipper review may be revised to meet current compliance requirements. Win Jones MD Win Jones MD 12/17/2020 9:07:51 AM Electronically signed by Win Jones MD Number of Addenda: 0 Note Initiated On: 12/17/2020 8:29 AM Estimated Blood Loss: Estimated blood loss: none.
[2020-12-17 09:34] VITALS: BP 107/56
== END 2020-12-17 09:45 | disposition home or self-care (01) ==
LOC: M OPP 08:01
PROVIDERS: ATTEND Surgery
DX: Z12.11 Encounter for screening for malignant neoplasm of colon (principal); K57.30 Diverticulosis of large intestine without perforation or abscess without bleeding; I10 Essential (primary) hypertension; F41.9 Anxiety disorder, unspecified; F31.9 Bipolar disorder, unspecified; G43.909 Migraine, unspecified, not intractable, without status migrainosus; Z79.899 Other long term (current) drug therapy
CPT/HCPCS: 45378; J2250

== ENCOUNTER 2021-09-24 14:21 | Emergency (ER) | payer OTHER ==
[~2021-09-24] VITALS: Ht 177.8 cm; Wt 92.3 kg
[~2021-09-24 14:21] MED LIST changes: -LIDOCAINE 2% 100MG/5ML SDV (FOR ANES.) As Ordered ONE; -NS 1,000 ML IV ONE; -propofoL 200 MG/20 ML VIAL As Ordered ONE
[2021-09-24] MEDS ORDERED: KETOROLAC 30 MG/ML 1ML VIAL IV ONE (17:30)
[2021-09-24 17:33] LABS: BASO % 0.2 % (0.0-1.0); EOS # 0.1 10^3/uL (0.0-0.5); EOS % 1.6 % (0.0-3.0); HEMATOCRIT 45.6 % (42.0-52.0); HEMOGLOBIN 15.5 g/dl (13.5-17.5); LYMPH # 1.3 10^3/uL (1.5-5.0); LYMPH % 24.2 % (24.0-44.0); MEAN CORPUSCULAR HEMOGLOBIN 31.3 pg (27.0-33.0); MEAN CORPUSCULAR VOLUME 92.1 fl (80.0-96.0); MONO # 0.5 10^3/uL (0.0-0.8); MONO % 9.7 % (2.0-8.0); NEUTROPHILS # 3.6 10^3/uL (1.5-8.5); NEUTROPHILS % 64.1 % (36.0-66.0); PLATELET COUNT, AUTOMATED 159 10^3/uL (150-450); RED BLOOD COUNT 4.95 10^6/uL (4.30-6.10); WHITE BLOOD COUNT 5.5 10^3/uL (4.0-10.0)
[2021-09-24 17:38] VITALS: BP 152/80
--- NOTE | 2021-09-24 17:47 | REP ---
INDICATION: bulge and pain in L groin, known hernia, into L testicle COMPARISON: None. TECHNIQUE: Whitmore scale and color Doppler evaluation using linear and curved array transducer with color Doppler evaluation. FINDINGS: The testicles and epididymi are relatively normal in contour, size, echogenicity, vascularity and overall appearance. There is no evidence for intratesticular mass lesion, infectious/inflammatory process, or torsion. No obvious hydroceles or varicoceles are identified. Right testicle measures 4.4 x 2.5 x 3.0 cm. Left testicle measures 4.1 x 2.6 x 2.7 cm. IMPRESSION: Essentially normal scrotal ultrasound. <Electronically signed by Mynor Howard > 09/24/21 [id number]
--- NOTE | 2021-09-24 17:48 | REP ---
INDICATION: bulge and pain in L groin, known hernia COMPARISON: None. TECHNIQUE: Directed B-mode ultrasound examination using linear high-frequency transducer. FINDINGS: Ultrasound examination of the left groin demonstrates a moderate sized fat containing non reducible inguinal hernia with a peritoneal defect measuring between 16 and 23 mm on respiration and Valsalva, respectively. IMPRESSION: Moderate fat containing inguinal hernia. <Electronically signed by Mynor Howard > 09/24/21 [id number]
[2021-09-24 18:07] LABS: ALBUMIN 4.1 GM/DL (3.2-5.2); ALT/SGPT 60 U/L (12-78); BILIRUBIN,DIRECT 0.2 MG/DL (0.0-0.2); BILIRUBIN,TOTAL 0.7 MG/DL (0.2-1.0); BLOOD UREA NITROGEN 8 MG/DL (7-18); CALCIUM LEVEL 9.3 MG/DL (8.8-10.2); CARBON DIOXIDE LEVEL 27 MEQ/L (21-32); CHLORIDE LEVEL 102 MEQ/L (98-107); CREATININE FOR GFR 0.84 MG/DL (0.70-1.30); GLOMERULAR FILTRATION RATE > 60.0 (>49); GLUCOSE, FASTING 89 MG/DL (70-100); LIPASE 77 U/L (73-393); POTASSIUM SERUM 3.7 MEQ/L (3.5-5.1); SODIUM LEVEL 137 MEQ/L (136-145)
[2021-09-24] MEDS ORDERED: KETO10TAB PO (18:52)
[2021-09-24] MEDS ORDERED: VIST50CA PO (18:52)
[2021-09-24 19:31] LABS: AMPHETAMINES LEVEL URINE NEGATIVE (NEGATIVE); BARBITURATES URINE NEGATIVE (NEGATIVE); BENZODIAZEPINES URINE NEGATIVE (NEGATIVE); CANNABINOIDS URINE NEGATIVE (NEGATIVE); COCAINE METABOLITE URINE NEGATIVE (NEGATIVE); METHADONE URINE NEGATIVE (NEGATIVE); OPIATES URINE NEGATIVE (NEGATIVE); PHENCYCLIDINE URINE NEGATIVE (NEGATIVE)
== END 2021-09-24 19:00 | disposition home or self-care (01) ==
LOC: M ED 14:21
DX: K40.90 Unilateral inguinal hernia, without obstruction or gangrene, not specified as recurrent (principal); R10.30 Lower abdominal pain, unspecified; I10 Essential (primary) hypertension; F41.9 Anxiety disorder, unspecified; F31.89 Other bipolar disorder; Z79.899 Other long term (current) drug therapy
CPT/HCPCS: 76857; 76870; 80048; 80076; 80307; 81001; 83690; 85025; 93976; 96374; 99283; J1885

== ENCOUNTER → 2025-08-25 | Outpatient (CLI) | payer OTHER ==
[~2025-08-25] MED LIST changes: +KETO10TAB PO; -KLON1TAB PO; +KLON1TAB13 PO; -LISI-898 PO; +LISI5TAB11 PO; -LUNE3TAB36 PO; +LUNE3TAB50 PO; -TADA2.5T; +TADA2.5T20; +VIST50CA PO
[2025-08-25 10:47] LABS: ESTIMATED AVERAGE GLUCOSE 128.0 MG/DL (60-110)
[2025-08-25 11:17] LABS: ALT/SGPT 93 U/L (7.0-40); AST/SGOT 245 U/L (<34); CALCIUM LEVEL 8.6 MG/DL (8.3-10.6); CARBON DIOXIDE LEVEL 31 MMOL/L (20-31); CHLORIDE LEVEL 87 MMOL/L (98-107); CHOLESTEROL LEVEL 937 MG/DL (<200); CHOLESTEROL RISK RATIO 44.19 (<5); CREATININE FOR GFR 0.75 MG/DL (0.70-1.30); GLOMERULAR FILTRATION RATE > 90.0 (>49); NON-HDL-C 915.8 MG/DL; POTASSIUM SERUM 4.9 MMOL/L (3.5-5.1); PSA SCREENING 0.52 NG/ML (< 4.00); SODIUM LEVEL 127 MMOL/L (136-145); TRIGLYCERIDES LEVEL 3937 MG/DL (<150)
== END ==
LOC: M LAB 09:30
PROVIDERS: ATTEND Student in an Organized Health Care Education/Training Program
DX: E66.9 Obesity, unspecified (principal); Z68.28 Body mass index [BMI] 28.0-28.9, adult

== ENCOUNTER → 2025-09-01 | Outpatient (CLI) | payer OTHER ==
[2025-09-01 11:03] LABS: ALT/SGPT 80 U/L (7.0-40); AST/SGOT 223 U/L (<34); CALCIUM LEVEL 8.3 MG/DL (8.3-10.6); CARBON DIOXIDE LEVEL 27 MMOL/L (20-31); CHLORIDE LEVEL 92 MMOL/L (98-107); CHOLESTEROL LEVEL 858 MG/DL (<200); CHOLESTEROL RISK RATIO 52.96 (<5); CREATININE FOR GFR 0.86 MG/DL (0.70-1.30); GLOMERULAR FILTRATION RATE > 90.0 (>49); NON-HDL-C 841.8 MG/DL; POTASSIUM SERUM 4.1 MMOL/L (3.5-5.1); SODIUM LEVEL 130 MMOL/L (136-145); TRIGLYCERIDES LEVEL 4818 MG/DL (<150)
== END ==
LOC: M LAB 08:51
PROVIDERS: ATTEND Student in an Organized Health Care Education/Training Program
DX: E78.2 Mixed hyperlipidemia (principal); E87.1 Hypo-osmolality and hyponatremia